=== PATIENT | male | born 1985 | race Caucasian/White ===

== ENCOUNTER 2018-03-16 12:16 | Emergency (ER) | payer BC, OTHER ==
--- NOTE | 2018-03-16 12:27 | EDM.PDOC ---
ED HPI GENERAL MEDICAL PROBLEM - General Chief Complaint: General Stated Complaint: MEDICAL CLEARANCE Time Seen by Provider: 03/16/18 12:27 Source of Information: Reports: Patient History Limitations: Reports: No Limitations - History of Present Illness INITIAL COMMENTS - FREE TEXT/NARRATIVE: HISTORY AND PHYSICAL: History of present illness: Ty is a 32-year-old male accompanied by transit police officer for medical clearance. Patient reports he jumped off of a trailer last night and rolled his left ankle. He has been able to walk on it but painful. He is otherwise in his usual states of health. No fevers, chills, nausea, vomiting, diarrhea. Review of systems: As per history of present illness and below otherwise all systems reviewed and negative. Past medical history: As per history of present illness and as reviewed below otherwise noncontributory. Surgical history: As per history of present illness and as reviewed below otherwise noncontributory. Social history: No reported history of drug or alcohol abuse. Family history: As per history of present illness and as reviewed below otherwise noncontributory. Physical exam: General: patient sitting comfortably in no acute distress HEENT: Atraumatic, normocephalic, pupils reactive, negative for conjunctival pallor or scleral icterus Extremities: Left lateral ankle is swollen but other obvious deformity. Skin is intact. Tenderness to palpation of lateral malleoli. Pain with dorsiflexion and inversion of the foot. negative for cords or calf pain. Neurovascular unremarkable. Neuro: Awake, alert, oriented. Cranial nerves II through XII unremarkable. Cerebellum unremarkable. Motor and sensory unremarkable throughout. Exam nonfocal. Notes: 1300 - Patient developed shaking and diaphoresis. Patient had told transit police officer that he had taken meth recently and told the nurse he had been drinking. 1520 - Shaking controlled after Ativan and valium as below. Diagnostics: x-ray left ankle CBC, CMP, TSH, UA, urine drug screen, EtOH Therapeutics: Ativan 5mg Valium 10mg Impression: Alcohol withdrawal Plan: Discussed with Dr. Pittman at [facility] in [place]. Patient accepted for transfer via ground ambulance. Definitive disposition and diagnosis as appropriate pending reevaluation and review of above. Left Ankle Pain Score (Numeric/FACES): 4 - Related Data Allergies Allergy/AdvReac Type Severity Reaction Status Date / Time No Known Allergies Allergy Verified 03/16/18 13:03 Home Meds: Home Meds . [No Known Home Meds] 03/16/18 [History] ED ROS GENERAL - Review of Systems Review Of Systems: ROS reveals no pertinent complaints other than HPI. ED EXAM, GENERAL - Physical Exam Exam: See Below (See dictation) Course - Vital Signs Last Recorded V/S: Last Vital Signs Temp 36.2 C 03/16/18 12:25 Pulse 111 H 03/16/18 12:25 Resp 18 03/16/18 12:25 BP 156/104 H 03/16/18 12:25 Pulse Ox 99 03/16/18 12:25 - Orders/Labs/Meds Orders: Active Orders 24 hr Category Date Time Status DRUG SCREEN, URINE [URCHEM] Stat Lab 03/16/18 13:19 Ordered TSH [CHEM] Stat Lab 03/16/18 14:00 Received Sodium Chloride 0.9% [Saline Flush] Med 03/16/18 13:19 Active 10 ml FLUSH ASDIRECTED PRN Sodium Chloride 0.9% [Saline Flush] Med 03/16/18 13:19 Active 2.5 ml FLUSH ASDIRECTED PRN Saline Lock Insert [OM.PC] Stat Oth 03/16/18 13:18 Ordered Medication Orders Sodium Chloride (Saline Flush) 10 ml FLUSH ASDIRECTED PRN PRN Reason: Keep Vein Open Sodium Chloride (Saline Flush) 2.5 ml FLUSH ASDIRECTED PRN PRN Reason: Keep Vein Open Labs: Laboratory Tests 03/16/18 03/16/18 03/16/18 Range/Units 14:00 14:00 14:00 WBC 20.68 H (4.0-11.0) K/uL RBC 5.39 (4.50-5.90) M/uL Hgb 15.9 (13.0-17.0) g/dL Hct 46.4 (38.0-50.0) % MCV 86.1 (80.0-98.0) fL MCH 29.5 (27.0-32.0) pg MCHC 34.3 (31.0-37.0) g/dL RDW Std Deviation 41.0 (28.0-62.0) fl RDW Coeff of Rosa [place]ela 13 (11.0-15.0) % Plt Count 398 (150-400) K/uL MPV 10.10 (7.40-12.00) fL Neut % (Auto) 81.1 H (48.0-80.0) % Lymph % (Auto) 12.0 L (16.0-40.0) % [place] % (Auto) 6.7 (0.0-15.0) % Eos % (Auto) 0.1 (0.0-7.0) % Baso % (Auto) 0.1 (0.0-1.5) % Neut # (Auto) 16.8 H (1.4-5.7) K/uL Lymph # (Auto) 2.5 H (0.6-2.4) K/uL [place] # (Auto) 1.4 H (0.0-0.8) K/uL Eos # (Auto) 0.0 (0.0-0.7) K/uL Baso # (Auto) 0.0 (0.0-0.1) K/uL Nucleated RBC % 0.0 /100WBC Nucleated RBCs # 0 K/uL Sodium 146 (136-148) mmol/L Potassium 3.8 (3.5-5.1) mmol/L Chloride 106 (98-107) mmol/L Carbon Dioxide 26.0 (21.0-32.0) mmol/L BUN 17 (7.0-18.0) mg/dL Creatinine 1.3 (0.8-1.3) mg/dL Est Cr Clr Drug Dosing 70.00 mL/min Estimated GFR (MDRD) > 60.0 ml/min Glucose 94 (74-106) mg/dL Calcium 9.3 (8.5-10.1) mg/dL Total Bilirubin 1.1 H (0.2-1.0) mg/dL AST 15 (15-37) IU/L ALT 20 (14-63) IU/L Alkaline Phosphatase 66 (46-116) U/L Creatine Kinase 332 H (26-308) U/L Total Protein 8.8 H (6.4-8.2) g/dL Albumin 4.8 (3.4-5.0) g/dL Globulin 4.0 H (2.0-3.5) g/dL Albumin/Globulin Ratio 1.2 L (1.3-2.8) Ethyl Alcohol < 3.0 mg/dL Meds: Medications Generic Name Dose Route Start Last Admin Trade Name Cherie PRN Reason Stop Dose Admin Sodium Chloride 10 ml 03/16/18 13:19 Saline Flush FLUSH ASDIRECTED PRN Keep Vein Open Sodium Chloride 2.5 ml 03/16/18 13:19 Saline Flush FLUSH ASDIRECTED PRN Keep Vein Open Discontinued Medications Generic Name Dose Route Start Last Admin Trade Name Cherie PRN Reason Stop Dose Admin Diazepam 5 mg 03/16/18 14:28 03/16/18 14:28 Valium IV 03/16/18 14:29 5 mg ONETIME ONE Administration Diazepam 5 mg 03/16/18 15:20 03/16/18 15:21 Valium IV 03/16/18 15:21 5 mg ONETIME ONE Administration Sodium Chloride 1,000 mls @ 999 mls/hr 03/16/18 13:19 03/16/18 15:07 Normal Saline IV 03/16/18 14:19 Not Given STAT ONE Lorazepam 1 mg 03/16/18 13:19 03/16/18 13:20 Ativan IVPUSH 03/16/18 13:20 1 mg ONETIME ONE Administration Lorazepam 2 mg 03/16/18 13:43 03/16/18 13:43 Ativan IVPUSH 03/16/18 13:44 2 mg ONETIME ONE Administration Lorazepam Confirm 03/16/18 13:59 03/16/18 14:19 Ativan Administered 03/16/18 14:00 2 mg Dose Administration 2 mg .ROUTE .STK-MED ONE Lorazepam 2 mg 03/16/18 14:02 03/16/18 15:10 Ativan PO 03/16/18 14:03 Not Given ONETIME ONE Lorazepam 1 mg 03/16/18 14:19 03/16/18 15:12 Ativan IVPUSH 03/16/18 14:20 Not Given ONETIME ONE Departure - Departure Time of Disposition: 15:36 Disposition: DC/Tfer to [facility] Clinical Impression: Alcohol withdrawal - Discharge Information Referrals: PCP,None [Primary Care Provider] - Forms: ED Department Discharge - My Orders Last 24 Hours: My Active Orders 03/16/18 13:18 Saline Lock Insert [OM.PC] Stat 03/16/18 13:19 DRUG SCREEN, URINE [URCHEM] Stat Sodium Chloride 0.9% [Saline Flush] 10 ml FLUSH ASDIRECTED PRN Sodium Chloride 0.9% [Saline Flush] 2.5 ml FLUSH ASDIRECTED PRN 03/16/18 14:00 TSH [CHEM] Stat - Assessment/Plan Last 24 Hours: My Active Orders 03/16/18 13:18 Saline Lock Insert [OM.PC] Stat 03/16/18 13:19 DRUG SCREEN, URINE [URCHEM] Stat Sodium Chloride 0.9% [Saline Flush] 10 ml FLUSH ASDIRECTED PRN Sodium Chloride 0.9% [Saline Flush] 2.5 ml FLUSH ASDIRECTED PRN 03/16/18 14:00 TSH [CHEM] Stat
[2018-03-16] MEDS ORDERED: Sodium Chloride 0.9% 1,000 ML IV ONE (13:19)
[2018-03-16] MEDS ORDERED: LORazepam 2 MG/ML SDV IVPUSH ONE ×3 (13:19→14:19)
[2018-03-16] MEDS ORDERED: Sodium Chloride 0.9% 2.5 ML Syringe FLUSH PRN (13:19)
[2018-03-16] MEDS ORDERED: Sodium Chloride 0.9% 10 ML Syringe FLUSH PRN (13:19)
--- NOTE | 2018-03-16 13:40 | CR ---
EXAMINATION: Left ankle HISTORY: Pain COMPARISON: None TECHNIQUE: 3 views FINDINGS/IMPRESSION: There is no acute osseous abnormality, dislocation, or fracture. Bone mineraliza tion, ankle mortise, and joint spaces are preserved. Moderate soft tissue swelling overlying the late ral malleolus.
[2018-03-16] MEDS ORDERED: LORazepam 2 MG/ML SDV ONE (13:59)
[2018-03-16] MEDS: LORazepam 1 MG Tab PO ONE ×2 (14:02→15:10)
[2018-03-16] MEDS ORDERED: Diazepam 5 MG/ML 10 ML Vial MDV IV ONE ×2 (14:28→15:20)
[2018-03-16 15:04] LABS: CHLORIDE,CL 106 mmol/L (98-107); SODIUM,NA 146 mmol/L (136-148)
== END 2018-03-16 17:10 | disposition critical access hospital (66) ==
LOC: MW.ED 12:16
DX: F10.239 Alcohol dependence with withdrawal, unspecified (principal)
CPT/HCPCS: 36415; 73610; 80053; 82550; 84443; 85025; 96372; 96374; 99291; 99292; A9270; G0480; J2060; 99284